=== PATIENT | female | born 1980 | race Caucasian/White ===

== ENCOUNTER 2017-04-30 03:35 | Emergency (ER) | payer BC ==
[~2017-04-30] VITALS: Ht 160 cm; Wt 54.4 kg
[~2017-04-30 03:35] MED LIST: ACET500; AMLO5 PO; ASPI81CH PO; CYCL10 PO; HYDACE5 PO; IBUP200; IBUP800 PO; META800 PO; NICO14TP TOP; Norco 5-325 Ta1 EACH PO; OTC COUGH MED; RXCYCL10 PO; RXHYDACE PO; RXONDA4ODT MM; Zofran Odt4 MG SL
[2017-04-30 05:53] LABS: Influenza A Negative (NEGATIVE); Influenza B Negative (NEGATIVE)
== END 2017-04-30 06:12 | disposition home or self-care (01) ==
LOC: ER 03:35
PROVIDERS: Emergency Medicine
DX: R07.81 Pleurodynia (principal); Z88.0 Allergy status to penicillin; Z88.5 Allergy status to narcotic agent; Z88.1 Allergy status to other antibiotic agents; Z79.899 Other long term (current) drug therapy; Z87.01 Personal history of pneumonia (recurrent); F17.210 Nicotine dependence, cigarettes, uncomplicated
CPT/HCPCS: 71046; 87804; 93005; 93010; 94640; 96372; 99283; J1885

== ENCOUNTER → 2017-11-18 | Outpatient (CLI) | payer BC ==
[2017-11-18 11:54] LABS: BASOPHILS ABSOLUTE AUTO 0.06 K/mm3 (0.00-0.23); BASOPHILS PERCENT AUTO 0 % (0-2); EOSINOPHILS ABSOLUTE AUTO 0.16 K/mm3 (0.00-0.68); EOSINOPHILS PERCENT AUTO 1 % (0-6); Hematocrit 41.9 % (33.0-51.0); Hemoglobin 14.2 g/dL (11.5-16.0); IMMATURE GRAN ABSOLUTE AUTO 0.06 K/mm3 (0.00-0.10); IMMATURE GRAN PERCENT AUTO 0 % (0-1); LYMPHOCYTES ABSOLUTE AUTO 2.84 K/mm3 (0.84-5.20); LYMPHOCYTES PERCENT AUTO 19 % (21-46); MONOCYTES PERCENT AUTO 7 % (4-13); Mean Corpuscular HGB 29.4 pg (26.0-34.0); Mean Corpuscular HGB Conc 33.9 g/dL (31.5-36.5); Mean Corpuscular Volume 87 fL (80-100); Mean Platelet Volume 9.9 fL (9.1-12.4); NEUTROPHILS ABSOLUTE AUTO 10.54 K/mm3 (1.96-9.15); NEUTROPHILS PERCENT AUTO 72 % (41-73); Platelet Count 379 K/mm3 (150-400); RDW Standard Deviation 41.1 fL (35.1-46.3); Red Blood Cell Count 4.83 M/mm3 (3.80-5.20); White Blood Cell Count 14.66 K/mm3 (4.00-11.30)
[2017-11-18 12:18] LABS: Alanine Aminotransfer (ALT/SGP 25 U/L (12-78); Albumin, Blood 4.1 g/dL (3.4-5.0); Albumin/Globulin Ratio 1.2 (0.8-1.8); Alk Phos 84 U/L (50-136); Anion Gap 9 mmol/L (6-16); Aspartate Aminotrans (AST/SGOT 14 U/L (12-37); Bilirubin, Total 0.5 mg/dL (0.1-1.0); Blood Urea Nitrogen 11 mg/dL (8-24); Bun/Creatinine Ratio 20.9 (12.0-20.0); CO2, Blood 26 mmol/L (21-32); Calcium, Blood 8.9 mg/dL (8.5-10.1); Chloride, Blood 104 mmol/L (98-108); Creatinine, Blood 0.53 mg/dL (0.40-1.00); Globulin, Blood 3.4 g/dL (2.2-4.0); Glomerular Filtration Rate >60 (60-); Glucose, Blood 85 mg/dL (70-99); Potassium, Blood 3.6 mmol/L (3.5-5.5); Sodium, Blood 139 mmol/L (136-145); Total Protein, Blood 7.5 g/dL (6.4-8.2)
== END ==
LOC: LAB SHORT 10:05
PROVIDERS: Nurse Practitioner
DX: R55 Syncope and collapse (principal); R53.83 Other fatigue
CPT/HCPCS: 80053; 84443; 85025

== ENCOUNTER → 2017-11-26 | Outpatient (CLI) | payer BC ==
[2017-11-26 10:58] LABS: BASOPHILS ABSOLUTE AUTO 0.05 K/mm3 (0.00-0.23); BASOPHILS PERCENT AUTO 0 % (0-2); EOSINOPHILS ABSOLUTE AUTO 0.19 K/mm3 (0.00-0.68); EOSINOPHILS PERCENT AUTO 2 % (0-6); Hematocrit 40.9 % (33.0-51.0); Hemoglobin 13.9 g/dL (11.5-16.0); IMMATURE GRAN ABSOLUTE AUTO 0.01 K/mm3 (0.00-0.10); IMMATURE GRAN PERCENT AUTO 0 % (0-1); LYMPHOCYTES ABSOLUTE AUTO 3.64 K/mm3 (0.84-5.20); LYMPHOCYTES PERCENT AUTO 31 % (21-46); MONOCYTES ABSOLUTE AUTO 0.95 K/mm3 (0.16-1.47); MONOCYTES PERCENT AUTO 8 % (4-13); Mean Corpuscular HGB 29.4 pg (26.0-34.0); Mean Corpuscular Volume 87 fL (80-100); Mean Platelet Volume 9.9 fL (9.1-12.4); NEUTROPHILS ABSOLUTE AUTO 6.75 K/mm3 (1.96-9.15); NEUTROPHILS PERCENT AUTO 58 % (41-73); Platelet Count 354 K/mm3 (150-400); RDW Coefficient Variation 12.9 % (11.7-14.2); RDW Standard Deviation 40.7 fL (35.1-46.3); Red Blood Cell Count 4.73 M/mm3 (3.80-5.20); White Blood Cell Count 11.59 K/mm3 (4.00-11.30)
== END | disposition home or self-care (01) ==
LOC: LAB 09:30 → LAB SHORT 09:30
PROVIDERS: Nurse Practitioner Family
DX: R55 Syncope and collapse (principal)
CPT/HCPCS: 85025

== ENCOUNTER 2022-04-29 19:49 | Emergency (ER) | payer OTHER, BC ==
[~2022-04-29] VITALS: Ht 160 cm; Wt 65.8 kg
[2022-04-29] MEDS ORDERED: CYCL10 PO (20:32)
== END 2022-04-29 20:40 | disposition home or self-care (01) ==
LOC: ER 19:49
DX: M54.50 Low back pain, unspecified (principal); F17.210 Nicotine dependence, cigarettes, uncomplicated; X50.1XXA Overexertion from prolonged static or awkward postures, initial encounter; Z88.0 Allergy status to penicillin; Z88.5 Allergy status to narcotic agent; Z88.1 Allergy status to other antibiotic agents; Z79.899 Other long term (current) drug therapy; Z95.2 Presence of prosthetic heart valve
CPT/HCPCS: A9270